=== PATIENT | male | born 1995 | race Caucasian/White ===

== ENCOUNTER 2017-08-22 07:58 | Outpatient (RCR) | payer BC | END 2017-11-20 | LOC: MKS.ESL.PT | DX: N53.12 Painful ejaculation (principal) ==

== ENCOUNTER 2018-11-08 09:00 | Outpatient (RCR) | payer BC | END 2019-01-09 | disposition home or self-care (01) | LOC: MKS.ESL.PT | DX: N53.12 Painful ejaculation (principal); R32 Unspecified urinary incontinence; K59.00 Constipation, unspecified | CPT/HCPCS: G0283-GP ==